=== PATIENT | female | born 1950 | race Caucasian/White ===

== ENCOUNTER 2019-06-06 11:31 | Emergency (ER) | payer MEDICARE, OTHER ==
[2019-06-06 12:07] VITALS: BP 169/76
--- NOTE | 2019-06-06 12:33 | UC ---
UC General HPI - HPI Summary HPI Summary: pt is c/o 2 week hx of episodic abdominal pains that radiate into her back. she gestures to her upper abdomen. they occur at random and are not associated with meals. last pm, the pain became much more severe. currently she is a 7/10. her last colonoscopy was 5 years ago without diverticular disease and her GB has been removed due to polyps. pt denies any n/v/d, fever and dysuria. - History of Current Complaint Chief Complaint: UCAbdominalPain Stated Complaint: ABD/LOW BACK PAIN Time Seen by Provider: 06/06/19 12:25 Hx Obtained From: Patient Pain Intensity: 7 - Allergy/Home Medications Allergies/Adverse Reactions: Allergies Allergy/AdvReac Type Severity Reaction Status Date / Time No Known Allergies Allergy Verified 06/06/19 11:57 Home Medications: Home Medications "Urinary Maintanence Supplemen 1 tab PO DAILY 06/06/19 [History Confirmed ] Acetaminophen/Diphenhydramine [Tylenol Pm Ex-Strength Caplet] 2 each PO BEDTIME 06/06/19 [History Confirmed 06/06/19] Aspirin EC TAB* [Ecotrin EC Low Dose 81 MG*] 81 mg PO DAILY 06/06/19 [History Confirmed 06/06/19] Calcium Carbonate/Vitamin D3 [Calcium 600 + Vit D Tablet] 1 each PO DAILY [History Confirmed 06/06/19] Milk Thistle 150 mg PO DAILY 06/06/19 [History Confirmed 06/06/19] Same Herbal Supplement 400 mg PO DAILY 06/06/19 [History Confirmed 06/06/19] Vitamin B Complex CAP* [B Complex CAP*] 1 cap PO DAILY 06/06/19 [History Confirmed 06/06/19] PMH/Surg Hx/FS Hx/Imm Hx Cardiovascular History: Hypertension - Surgical History Surgical History: Yes Surgery Procedure, Year, and Place: Cholecystectomy, ~2016; Breast Reconstruction; Left Mastectomy, 1979 - Social History Occupation: Retired Alcohol Use: None Substance Use Type: None Smoking Status (MU): Former Smoker Length of Time of Smoking/Using Tobacco: 2 PPD x 15 Years When Did the Patient Quit Smoking/Using Tobacco: 1980 - Immunization History Most Recent Influenza Vaccination: Fall 2013 Review of Systems All Other Systems Reviewed And Are Negative: Yes Constitutional: Negative: Fever, Chills Respiratory: Negative: Shortness Of Breath, Cough Cardiovascular: Negative: Palpitations, Chest Pain Gastrointestinal: Positive: Abdominal Pain. Negative: Vomiting, Diarrhea, Nausea Genitourinary: Negative: Dysuria Physical Exam Triage Information Reviewed: Yes Appearance: Other: - Appears uncomfortable but non toxic. Vital Signs: Initial Vital Signs Temp 98.2 F 06/06/19 11:50 Pulse 76 06/06/19 11:50 Resp 16 06/06/19 11:50 BP 169/76 06/06/19 11:50 Pulse Ox 100 06/06/19 11:50 Vital Signs Reviewed: Yes Eyes: Positive: Conjunctiva Clear ENT: Positive: Normal ENT inspection Neck: Positive: Supple, Nontender, No Lymphadenopathy Respiratory: Positive: Lungs clear, Normal breath sounds, No respiratory distress Cardiovascular: Positive: RRR, No Murmur Abdomen Description: Positive: Other: - Hypoactive BS. Soft. Tender with guarding L mid to LLQ. No mass. No HSM. No CVA tenderness. No pulsatile mass. No rash on skin. Musculoskeletal: Positive: ROM Intact Neurological: Positive: Alert Psychological: Positive: Age Appropriate Behavior Skin Exam: Normal Skin: Negative: Rashes Course/Dx - Course Course Of Treatment: Pt agrees to ER transfer but has declined [facility]. She advises will go directly to [facility]. EMS offered but pt refused, her male [employer] certified network associate is driving her. I have advised of risk for mva,, delay in care, worsening, disability and but pt still refusing EMS. Pt is A&O x3. She is able to make decisions thus I must respect her refusal of EMS. [facility] CALLED. PRELIMINARY REPORT GIVEN TO [employer] EDUCATIONAL/DEVELOPMENT ASSISTANT. A RN WILL BE CALLING ME BACK. 12:54 [facility] transfer RN called back. report of abdominal pain into back given. also advised pt declined ems and coming via private care. - Differential Dx - Multi-Symptom Differential Diagnoses: Other - abdominal pain with peritoneal signs. differential is broad and ER transfer indicated. - Diagnoses Provider Diagnosis: Abdominal pain Discharge ED - Sign-Out/Discharge Documenting (check all that apply): Patient Departure All imaging exams completed and their final reports reviewed: No Studies - Discharge Plan Condition: Stable Disposition: TRANS HIGHER LVL OF CARE FAC Referrals: Non Staff,Doctor [Primary Care Provider] - Additional Instructions: LEAVE HERE AND GO DIRECTLY TO [facility] IN [place] DISCUSSED. - Billing Disposition and Condition Condition: STABLE Disposition: Trans Higher Lvl of Care Fac
== END 2019-06-06 12:45 | disposition short-term general hospital (02) ==
LOC: UCCORT 11:31
DX: R10.12 Left upper quadrant pain (principal); R10.32 Left lower quadrant pain; M54.5 Low back pain; I10 Essential (primary) hypertension; Z79.82 Long term (current) use of aspirin; Z90.49 Acquired absence of other specified parts of digestive tract; Z87.891 Personal history of nicotine dependence
CPT/HCPCS: 99202; G0463